=== PATIENT | male | born 1995 | race Caucasian/White ===

== ENCOUNTER 2023-01-07 10:04 | Emergency (ER) | payer MEDICAID ==
[~2023-01-07] VITALS: Ht 185.4 cm; Wt 93.0 kg
[2023-01-07 10:24] VITALS: BP 110/70
[2023-01-07 12:13] LABS: BASOPHILS % (AUTO) 0.4 % (0-1); EOSINOPHILS # (AUTO) 0.1 X10'3 (0-0.9); EOSINOPHILS % (AUTO) 0.9 % (0-6); HEMATOCRIT 41.6 % (42.0-52.0); HEMOGLOBIN 13.7 g/dl (14.0-17.9); LYMPHOCYTES # (AUTO) 1.4 X10'3 (1.1-4.8); LYMPHOCYTES % (AUTO) 13.3 % (21-51); MEAN CORPUSCULAR HEMOGLOBIN 28.9 PG (27.0-31.0); MEAN CORPUSCULAR HGB CONC 32.9 g/dL (33.0-36.5); MEAN CORPUSCULAR VOLUME 87.7 FL (78-98); MEAN PLATELET VOLUME 6.7 FL (7.4-10.4); MONOCYTES # (AUTO) 1.1 X10'3 (0-0.9); MONOCYTES % (AUTO) 9.9 % (2-12); NEUTROPHILS # (AUTO) 8.1 X10'3 (1.8-7.7); NEUTROPHILS % (AUTO) 75.5 % (42-75); PLATELET COUNT 403 X10'3 (140-440); RED BLOOD COUNT 4.75 X10'6 (4.70-6.10); RED CELL DISTRIBUTION WIDTH 13.3 % (11.5-14.5); WHITE BLOOD COUNT 10.7 X10'3 (4.5-11.0)
[2023-01-07 12:33] LABS: ALANINE AMINOTRANSFERASE 28 U/L (12-78); ALBUMIN 3.3 G/DL (3.4-5.0); ALBUMIN/GLOBULIN RATIO 0.8 (1.1-1.5); ALKALINE PHOSPHATASE 62 IU/L (46-116); ANION GAP 6 (8-16); ASPARTATE AMINO TRANSFERASE 23 U/L (10-37); BILIRUBIN,TOTAL 0.4 MG/DL (0.1-1.0); BLOOD UREA NITROGEN 10 MG/DL (7-18); CALCIUM 9.2 MG/DL (8.5-10.1); CHLORIDE 102 MMOL/L (99-107); CREATININE 0.83 MG/DL (0.60-1.10); GLUCOSE 100 MG/DL (70-104); SODIUM 138 MMOL/L (135-145); TOTAL PROTEIN 7.2 G/DL (6.4-8.2); eGFR > 90 ML/MIN
[2023-01-07] MEDS ORDERED: iohexol 300mg/ml 100ml inj. ONE (13:13)
[2023-01-07] MEDS ORDERED: METR-159 PO ×2 (14:35)
[2023-01-07] MEDS ORDERED: CIPR-259 PO ×2 (14:35)
[2023-01-08] MEDS ORDERED: CIPR-202 PO ×2 (00:23)
[2023-01-08] MEDS ORDERED: METR-159 PO ×2 (00:23)
[2023-01-10] MEDS ORDERED: NO HOME MEDS (17:23)
== END 2023-01-07 14:48 | disposition left against medical advice (07) ==
LOC: ER 10:05
DX: K63.0 Abscess of intestine (principal); F17.200 Nicotine dependence, unspecified, uncomplicated; Z90.49 Acquired absence of other specified parts of digestive tract; Z56.0 Unemployment, unspecified; Z79.899 Other long term (current) drug therapy
CPT/HCPCS: 36415; 74177; 80053; 83605; 84145; 85025; 87040; 99285; J3490; Q9967

== ENCOUNTER 2023-01-07 18:38 | Emergency (ER) | payer MEDICAID ==
[~2023-01-07] VITALS: Ht 185.4 cm; Wt 93.2 kg
[~2023-01-07 18:38] MED LIST: CIPR-259 PO; METR-159 PO
[2023-01-07] MEDS ORDERED: vancomycin/NS 1 GM ADD-VANTAGE 250 ML IV ONE (20:44)
[2023-01-07] MEDS ORDERED: piperacillin/tazo 3.375gm/50ml 50 ML IV SCH (20:44)
[2023-01-07] MEDS ORDERED: vancomycin/NS 1 GM ADD-VANTAGE 250 ML IV SCH (20:44)
[2023-01-07 21:22] LABS: BASOPHILS % (AUTO) 0.5 % (0-1); EOSINOPHILS # (AUTO) 0.1 X10'3 (0-0.9); HEMATOCRIT 39.1 % (42.0-52.0); HEMOGLOBIN 13.1 g/dl (14.0-17.9); LYMPHOCYTES # (AUTO) 1.8 X10'3 (1.1-4.8); LYMPHOCYTES % (AUTO) 19.4 % (21-51); MEAN CORPUSCULAR HEMOGLOBIN 29.6 PG (27.0-31.0); MEAN CORPUSCULAR HGB CONC 33.6 g/dL (33.0-36.5); MEAN PLATELET VOLUME 6.9 FL (7.4-10.4); MONOCYTES # (AUTO) 1.1 X10'3 (0-0.9); MONOCYTES % (AUTO) 11.7 % (2-12); NEUTROPHILS # (AUTO) 6.3 X10'3 (1.8-7.7); NEUTROPHILS % (AUTO) 67.4 % (42-75); PLATELET COUNT 367 X10'3 (140-440); RED BLOOD COUNT 4.44 X10'6 (4.70-6.10); RED CELL DISTRIBUTION WIDTH 13.4 % (11.5-14.5); WHITE BLOOD COUNT 9.4 X10'3 (4.5-11.0)
[2023-01-07 21:31] LABS: ALANINE AMINOTRANSFERASE 25 U/L (12-78); ALBUMIN 3.1 G/DL (3.4-5.0); ALBUMIN/GLOBULIN RATIO 0.8 (1.1-1.5); ALKALINE PHOSPHATASE 61 IU/L (46-116); ANION GAP 6 (8-16); ASPARTATE AMINO TRANSFERASE 16 U/L (10-37); BILIRUBIN,TOTAL 0.3 MG/DL (0.1-1.0); BLOOD UREA NITROGEN 11 MG/DL (7-18); BUN/CREATININE RATIO 12.2 (10.0-20.0); CALCIUM 8.7 MG/DL (8.5-10.1); CHLORIDE 102 MMOL/L (99-107); GLUCOSE 94 MG/DL (70-104); POTASSIUM 3.5 MMOL/L (3.5-5.1); SODIUM 137 MMOL/L (135-145); TOTAL CARBON DIOXIDE 28.7 MMOL/L (24-32); TOTAL PROTEIN 6.9 G/DL (6.4-8.2); eGFR > 90 ML/MIN
[2023-01-07] MEDS ORDERED: ondansetron/PF 4mg/2ml inj IV ONE (21:40)
[2023-01-07] MEDS ORDERED: morphine 4 MG/ML inj SYRINge IV ONE (21:40)
--- NOTE | 2023-01-07 21:40 | NUR ---
PER DR BO PT TO BE NPO AT THIS TIME
--- NOTE | 2023-01-07 21:53 | NUR ---
WOUND CLEANED AND DRESSING CHANGED
[2023-01-08] MEDS ORDERED: HYDROcodone/acetaminophen 10/325mg tab PO ONE (00:20)
[2023-01-08] MEDS ORDERED: metroNIDAZOLE 500mg tablet PO ONE (00:20)
[2023-01-08] MEDS ORDERED: ciprofloxacin 250mg tablet PO ONE (00:20)
[2023-01-08] MEDS ORDERED: METR-159 PO ×2 (00:23)
[2023-01-08] MEDS ORDERED: CIPR-202 PO ×2 (00:23)
[2023-01-08 01:22] VITALS: BP 112/66
[2023-01-10] MEDS ORDERED: NO HOME MEDS (17:23)
[2023-01-12] MEDS ORDERED: METR-159 PO (08:42)
[2023-01-12] MEDS ORDERED: CIPR-259 PO (08:42)
[2023-01-12] MEDS ORDERED: IBUP-1985 PO (10:04)
[2023-01-12] MEDS ORDERED: ACET-1008 PO (10:04)
== END 2023-01-08 01:23 | disposition home or self-care (01) ==
LOC: ER 18:39
DX: K65.1 Peritoneal abscess (principal); Z98.890 Other specified postprocedural states; Z56.0 Unemployment, unspecified
CPT/HCPCS: 36415; 80053; 83605; 85025; 87040; 96365; 96366; 96375; 99291; J2270; J2405; J2543; J3370; 99284; A6258; A6449